=== PATIENT | female | born 1985 | race African-American/Black ===

== ENCOUNTER 2016-12-19 08:35 | Inpatient (IN) | payer BC ==
[2016-12-19] MEDS ORDERED: ELECTROLYTE-148 SOLN 1,000 ML IV SCH (09:30)
[2016-12-19] MEDS ORDERED: DINOPROSTONE 10 MG VAGINAL SUPPOSITORY VG ONE (09:39)
--- NOTE | 2016-12-19 09:48 | HP ---
Past Medical History - Primary Care Physician PCP:: Christian Calvillo - Admission Chief Complaint: 31 yo P0 with at EGA 40w3d admitted for labor induction. 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: No: Alzheimer's, CVA, Dementia, Migraine, Multiple Sclerosis, Peripheral Neuropathy, Parkinson's, Seizure, Syncope, TIA, Vertigo, Other Cardiovascular: No: AFIB, Aneurysm, Aortic Insufficiency, Aortic Stenosis, CAD, CHF, Deep Vein Thrombosis, HTN, Hyperlipdemia, NC, Mitral Insufficiency, Mitral Stenosis, Murmur, Pulmonary Hypertension, Other Pulmonary: No: Asthma, Bronchitis, Cancer, COPD, O2 Dependent, Pneumonia, Previously Intubated, Pulmonary Embolus, Pulmonary Fibrosis, Sleep Apnea, Other Gastrointestinal: No: Ascites, Cancer, Constipation, Crohn's Disease, Diverticulitis, Diverticulosis, Esophageal Varices, Gastritis, GERD, GI Bleed, Hemorrhoids, Hiatal Hernia, Inflamatory Bowel Disease, Irritable Bowel Disease, Pancreatitis, Peptic Ulcer Disease, Ulcerative Colitis, Other Hepatobiliary: No: Cirrhosis, Cholelithiasis, Cholecystitis, Choledocholithiasis , Hepatitis A, Hepatitis B, Hepatitis C, Other Renal/: No: Renal Failure, Renal Inusuff, BPH, Cancer, Hematuria, Hemodialysis , Neurogenic Bladder, Renal Calculi, UTI, Other Reproductive: No: Ectopic , Endometriosis, Fibroids, PID, Polycystic Ovary Syndrome, Postmenopausal, Other ...: 1 ...Para: 0 ... Weeks Gestation by Dates: 40.3 ...EDC by Sono: 12/16/16 Heme/Onc: No: Anemia, B12 Deficiency, Bleeding Disorder, Cancer, Current Chemotherapy, Current Radiation Therapy, Hemochromatosis, Hypercoaguable State, Myeloproliferative Synd, Sickle Cell Disease, Sickle Cell Trait, Thrombocytopenia, Other Infectious Disease: No: AIDS, C-Diff, Herpes Zoster, HIV, MRSA, STD's, Tuberculosis, VREF, Other Psych: No: Addictions, Anxiety, Bipolar, Depression, Panic, Psychosis, Schizophrenia, Other Musculoskeletal: Yes: Chronic low back pain Rheumatology: No: Fibromyalgia, Gout, Lupus, Rheumatoid Arthritis, Sarcoidosis, Vasculitis, Other ENT: No: Allergic Rhinitis, Sinusitis, Other Endocrine: No: Naun's Disease, Alec's Disease, Diabetes Insipidus, Diabetes Mellitus, Hyperparathyroidism, Hyperthyroidism, Hypothyroidism, Osteopenia, SIADH, Other Dermatology: No: Basal Cell, Cellulitis, Eczema, Melanoma, Psoriasis, Squamous Cell, Other - Past Surgical History Past Surgical History: Yes: Bariatric Surgery Hx Myomectomy: No Hx Transabdominal Cerclage: No - Smoking History Smoking history: Never smoked - Alcohol/Substance Use Hx Alcohol Use: No History of Substance Use: reports: None - Social History Usual Living Arrangement: Yes: With Significant Other ADL: Independent 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 History of Recent Travel: No Home Medications - Allergies Allergies/Adverse Reactions: Allergies Allergy/AdvReac Type Severity Reaction Status Date / Time No Known Allergies Allergy Verified 12/19/16 09:49 Review of Systems - Review of Systems Constitutional: reports: No Symptoms Eyes: reports: No Symptoms HENT: reports: No Symptoms Neck: reports: No Symptoms Cardiovascular: reports: No Symptoms Respiratory: reports: No Symptoms Gastrointestinal: reports: No Symptoms Genitourinary: reports: No Symptoms Breasts: reports: No Symptoms Reported Musculoskeletal: reports: No Symptoms Integumentary: reports: No Symptoms Neurological: reports: No Symptoms Endocrine: reports: No Symptoms Hematology/Lymphatic: reports: No Symptoms Psychiatric: reports: No Symptoms Pain Intensity: 0 Physical Exam - Maternity Constitutional: Yes: Well Nourished, No Distress, Calm Eyes: Yes: WNL, Conjunctiva Clear HENT: Yes: WNL, Atraumatic, Normocephalic Neck: Yes: WNL, Supple, Trachea Midline Cardiovascular: Yes: WNL, Regular Rate and Rhythm Lungs: Clear to auscultation, Normal air movement Breast(s): Yes: WNL - Abdominal Exam/OB Fundal Height: 41 Number of Fetuses: Single Presentation: Vertex Contractions: Yes Regularity: Irritability Intensity: Unaware Monitor Mode: External Heart Rate (range): 140 Heart Rate Location: Midline Category: I Accelerations: Non-Uniform Decelerations: None - Vaginal Exam/OB Vaginal Bleediing: No Speculum Exam: No Dilatation (cm): 0 Effacement (%): 0 Amniotic Membrane Status: Intact Presentation: Vertex/Position Station: -3 - Physical Exam Musculoskeletal: Yes: WNL Extremities: Yes: WNL Edema: Yes Edema: LLE: Trace, RLE: Trace Integumentary: Yes: WNL Deep Tendon Reflex Grade: Normal +2 ...Motor Strength: WNL Psychiatric: Yes: WNL, Alert, Oriented Hemorrhage Risk Assessment - Risk Factors Medium Risk Factors: Yes: Obesity (BMI >40) High Risk Factors: Yes: None Risk Score: 1 Risk Level: Medium Risk Imaging - Results Ultrasound: Report Reviewed Assessment/Plan 31 yo P0 with at EGA 40w3d admitted for labor induction. Fetus with Category I tracing and requires no intervention. Adequate pelvimetry with unfavorable cervix. Pt with post term complicated by morbid obesity and gastric bypass. We discussed risks and benefits of labor induction and section. The pt declined the C/S and requested to proceed with labor induction.
[2016-12-19] MEDS ORDERED: AMPICILLIN - 2 GM in SODIUM CHLORIDE 100 ML IVPB ONE (10:00)
[2016-12-19] MEDS: DEXTROSE 5%-LACTATED RINGERS 1,000 ML IV SCH ×2 (10:00→18:05)
[2016-12-19 10:18] LABS: BASOPHIL 0.3 % (0-2.0); EOSINOPHIL 0.3 % (0-4.5); MCH 30.1 pg (25.7-33.7); MCHC 33.5 g/dl (32.0-36.0); MEAN CELL VOLUME 89.9 fl (80-96); MEAN PLT VOLUME 10.7 fl (7.5-11.1); NEUTROPHILS 68.3 % (42.8-82.8); PLATELET COUNT 179 K/MM3 (134-434); RDW 13.8 % (11.6-15.6); WHITE BLOOD COUNT 9.7 K/mm3 (4.0-10.0)
[2016-12-19 10:24] LABS: INR 0.93 (0.82-1.09); PROTHROMBIN TIME (PATIENT) 10.2 SEC (9.98-11.88)
[2016-12-19 10:28] LABS: ACTIVATED PTT 29.5 SECONDS (26.9-34.4)
[2016-12-19 10:34] LABS: ALBUMIN 2.8 g/dl (3.4-5.0); ANION GAP 8 (8-16); CALCIUM 8.8 mg/dL (8.5-10.1); CO2 23 mmol/L (21-32); GLUCOSE,RANDOM 102 mg/dL (74-106)
[2016-12-19 10:37] LABS: ALK PHOS 169 U/L (45-117); BILIRUBIN,TOTAL 0.4 mg/dL (0.2-1.0); COCKROFT - GAULT 0; CREATININE 0.7 mg/dL (0.55-1.02); SGOT/AST 27 U/L (15-37); SGPT/ALT 37 U/L (12-78)
[2016-12-19 10:56] VITALS: BMI 48.2
[2016-12-19] MEDS: AMPICILLIN - 1 GM in SODIUM CHLORIDE 100 ML IVPB SCH ×3 (14:00→22:00)
--- NOTE | 2016-12-19 20:20 | PN ---
Ante-Partal Exam - Subjective Subjective: No complaints. Vital Signs: Vital Signs Temperature 98.2 F 12/19/16 18:00 Pulse Rate 68 12/19/16 18:00 Respiratory Rate 20 12/19/16 18:00 Blood Pressure 123/53 12/19/16 18:00 O2 Sat by Pulse Oximetry (%) Bleeding: No Headache: No Visual changes: No Right upper quadrant pain: No Pain (scale 1-10): 0 - Contractions Contractions: Yes Regularity: Irritability Intensity: Unaware Monitor Mode: External - Exam during Labor Heart Rate: 130 Variability: Moderate Heart Rate Location: Midline Category: I Monitor Accelerations: Present Monitor Decelerations: None Exam: Vaginal Dilatation (cm): 0 Effacement (%): 50 Amniotic Membrane Status: Intact Presentation: Vertex Station: -3 (Adequate pelvimetry) - Intrapartum Hemorrhage Risk Medium Risk Factors: None High Risk Factors: None Risk Score: 0 Risk Level: Low Risk - Assessment/Plan Assessment/Plan: 31yo P0 with at EGA 40w3d admitted for labor induction due to post term and morbid obesity. Fetus with Category I tracing and requires no intervention. Cervidil was removed. Plan to start Pitocin and monitor progress. Plan of care, risks, benefits, alternatives were discussed with the pt. She agreed.
[2016-12-19] MEDS ORDERED: OXYTOCIN 15 UNITS/ LR 250 ML 250 ML IVPB SCH (20:30)
[2016-12-20] MEDS: AMPICILLIN - 1 GM in SODIUM CHLORIDE 100 ML IVPB SCH ×5 (02:00→18:41)
[2016-12-20] MEDS ORDERED: BUTORPHANOL TARTRATE 1 MG/ML VIAL IVPB ONE ×2 (05:00→09:31)
[2016-12-20] MEDS ORDERED: PROMETHAZINE HCL 25 MG/1 ML VIAL IVPB ONE ×2 (05:00→09:31)
--- NOTE | 2016-12-20 07:15 | PN ---
Ante-Partal Exam - Subjective Subjective: No complaints. Pt feels mild cramps. Vital Signs: Vital Signs Temperature 97.7 F 12/20/16 06:00 Pulse Rate 66 12/20/16 06:00 Respiratory Rate 20 12/20/16 06:00 Blood Pressure 148/69 12/20/16 06:00 O2 Sat by Pulse Oximetry (%) Bleeding: No Headache: No Visual changes: No Right upper quadrant pain: No Pain (scale 1-10): 2 - Contractions Contractions: Yes Regularity: Irregular Intensity: Mild Monitor Mode: External - Exam during Labor Heart Rate: 130 Variability: Moderate Heart Rate Location: Midline Category: I Monitor Accelerations: Present Monitor Decelerations: None Exam: Vaginal Dilatation (cm): 1 Effacement (%): 80 Amniotic Membrane Status: Intact Presentation: Vertex Station: -3 (Adequate gynecoid pelvimetry) Remarks: Adequate gynecoid pelvimetry - Intrapartum Hemorrhage Risk Medium Risk Factors: None High Risk Factors: None Risk Score: 0 Risk Level: Low Risk - Assessment/Plan Assessment/Plan: 31 yo P0 undergoing labor induction at EGA 40w4d. Pitocin is at 15mU. Fetus with Category I tracing. Fetus requires no intervention. labor progressed in latent phase. Continue pitocin. Plan to continue indx, monitor progress.
[2016-12-20] MEDS ORDERED: BUTORPHANOL TARTRATE 1 MG/ML VIAL IVPUSH ONE (14:45)
--- NOTE | 2016-12-20 17:08 | PN ---
Ante-Partal Exam - Subjective Subjective: Pt is c/o painful ctx's Vital Signs: Vital Signs Temperature 98.3 F 12/20/16 14:00 Pulse Rate 69 12/20/16 16:00 Respiratory Rate 18 12/20/16 16:00 Blood Pressure 125/78 12/20/16 16:00 O2 Sat by Pulse Oximetry (%) Bleeding: No Headache: No Visual changes: No Right upper quadrant pain: No Pain (scale 1-10): 6 - Contractions Contractions: Yes Regularity: Regular Intensity: Moderate Monitor Mode: External - Exam during Labor Heart Rate: 130 Variability: Moderate Heart Rate Location: Midline Category: I Monitor Accelerations: Present Monitor Decelerations: None Exam: Vaginal Dilatation (cm): 1 Effacement (%): 80 Amniotic Membrane Status: Intact Presentation: Vertex Station: -4 - Intrapartum Hemorrhage Risk Medium Risk Factors: None High Risk Factors: None Risk Score: 0 Risk Level: Low Risk - Assessment/Plan Assessment/Plan: 31 yo P0 with pregancy at EGA 40w4d undergoing labor induction. No cervical change since earlier this AM. pt does not wish to continue labor induction. She is refusing ROM and further labor. The pt requested a section. We had a long discussion re: risks of surgery, including but not limited to infection, bleeding, wound separation, injury to underlying organs. Risks due to morbid obesity explained. The patient wants to proceed with surgery.
[2016-12-20] MEDS ORDERED: METOCLOPRAMIDE HCL INJECTION 10 MG/2 ML VIAL IVPB ONE (17:45)
[2016-12-20] MEDS: DEXTROSE 5%-LACTATED RINGERS 1,000 ML IV SCH (18:13)
[2016-12-20] MEDS ORDERED: morphine SULFATE/Preservative Free 0.5 MG/ML (1cc Syringe) SPIN ONE (19:20)
[2016-12-20] MEDS ORDERED: ACETAMINOPHEN 325 MG TABLET (FP) PO PRN (19:56)
[2016-12-20] MEDS ORDERED: ONDANSETRON 4 MG/2 ML VIAL IVPB PRN (19:56)
[2016-12-20] MEDS ORDERED: IBUPROFEN 600 MG TABLET (FP) PO PRN (20:51)
[2016-12-20] MEDS ORDERED: BENZOCAINE 20% 57 GM BOTTLE TP PRN (20:51)
[2016-12-20] MEDS ORDERED: WITCH HAZEL 50% (TUCKS) 40 PAD/JAR PAD TP PRN (20:51)
[2016-12-20] MEDS ORDERED: BENZOCAINE 28 GM HEMORRHOIDAL OINTMENT TP PRN (20:51)
[2016-12-20] MEDS ORDERED: METHYLERGONOVINE MALEATE 0.2 MG/1 ML AMP IM PRN (20:51)
--- NOTE | 2016-12-20 20:59 | OP ---
Operative Note - Note: Operative Date: 12/20/16 Pre-Operative Diagnosis: Post term at EGA 40w4d. Failed labor induction. Morbid obesity, affecting management. Hx bariatric surgery Operation: Primary LT C/S Findings: Live baby girl in vtx presentation. Light meconium in amniotic fluid. 9/9. Normal uterus, tubes, ovaries. Post-Operative Diagnosis: Same as Pre-op Surgeon: Christian Calvillo Anesthesiologist/LACE ROLLER: Chilango Daniels Anesthesia: Spinal Specimens Removed: Placenta Estimated Blood Loss (mls): 700 Drains & Tubes with Location: Perez Catheter Drains, Volume Out (mls): 300 Blood Volume Replaced (mls): 0 Fluid Volume Replaced (mls): 1,000 Operative Report Dictated: Yes
[2016-12-20] MEDS: IBUPROFEN 800 MG/8 ML IJ IVPB PRN (21:25)
[2016-12-21] MEDS: AMPICILLIN - 1 GM in SODIUM CHLORIDE 100 ML IVPB SCH ×2 (01:12→02:22)
[2016-12-21] MEDS: CEFAZOLIN (PRE-DOCKED) 50 ML IVPB SCH ×3 (03:00→20:44)
[2016-12-21] MEDS: IBUPROFEN 800 MG/8 ML IJ IVPB PRN ×2 (07:58→15:30)
[2016-12-21 08:48] LABS: BASOPHIL 0.1 % (0-2.0); EOSINOPHIL 0.5 % (0-4.5); MCH 30.3 pg (25.7-33.7); MCHC 33.8 g/dl (32.0-36.0); MEAN CELL VOLUME 89.7 fl (80-96); MEAN PLT VOLUME 10.5 fl (7.5-11.1); NEUTROPHILS 70.1 % (42.8-82.8); PLATELET COUNT 147 K/MM3 (134-434); RDW 13.8 % (11.6-15.6); WHITE BLOOD COUNT 8.7 K/mm3 (4.0-10.0)
--- NOTE | 2016-12-21 09:28 | OP ---
DATE OF OPERATION: 12/20/2016 PREOPERATIVE DIAGNOSIS: Post term at estimated gestational age of 40 weeks and 4 days, failed labor induction, morbid obesity affecting management, history of bariatric surgery. SURGERY: Primary low transverse section via Pfannenstiel skin incision. POSTOPERATIVE DIAGNOSIS: Post term at estimated gestational age of 40 weeks and 4 days, failed labor induction, morbid obesity affecting management, history of bariatric surgery. Delivered. IV FLUIDS: 1000 mL. URINE OUTPUT: 300 mL of clear urine at the end of the procedure. ESTIMATED BLOOD LOSS: 700 mL. ANESTHESIOLOGIST: Chilango Daniels MD ANESTHESIA: Spinal. PATHOLOGY: Placenta. SURGEON: Gurjit Calvillo MD FINDINGS: Live baby girl in vertex presentation. Light meconium and amniotic fluid. Apgars 9/9. Normal uterus, fallopian tubes, and ovaries. DESCRIPTION OF PROCEDURE: The patient was met preoperatively. Risks, benefits, and alternatives of surgery were discussed at length in detail. The patient verbalized her understanding and requested to proceed with surgery. The patient was then brought to the OR with the IV running. She was placed on the surgical table in a sitting position. The spinal anesthesia was achieved without difficulty. The patient was then placed in a supine position with a leftward tilt. The patient was prepped and draped in the usual sterile fashion. A Perez catheter was inserted into the bladder and left to drain to gravity. The surgeons then proceeded with the section. The Pfannenstiel skin incision was made with the knife. The incision was carried down to the level of the fascia. Good hemostasis was maintained along the way. The fascia was incised in the midline. The incision was extended bilaterally using Hickman scissors. The fascia was dissected away from the rectus muscles superiorly and inferiorly. The rectus muscles were in the midline. The peritoneum was identified and entered sharply. The peritoneal incision was extended superiorly and inferiorly. The bladder peritoneum was dissected away from the lower uterine segment. The bladder was then reflected downwards using a [place] retractor. The uterus was incised in the lower uterine segment transversely. The uterine incision was extended using bandage scissors. The amniotic bag was ruptured, and light meconium was noted. The baby was delivered from vertex presentation without complications. The nuchal cord was released without difficulty. The patient's shoulders and body were delivered without complications. The baby was crying spontaneously. The umbilical cord blood was clamped and cut. The baby was handed to the awaiting laboratory chemist. The placenta was delivered manually without complications. The uterus was cleared of all clot and debris. The uterus was exteriorized from the abdominal incision. The uterine incision was repaired using a 0 Biosyn suture with a running, locking stitch. Good hemostasis was noted. The uterine incision was then imbricated using a 0 Biosyn suture with good hemostasis and approximation. The uterus was returned into the abdominal cavity. The bladder peritoneum was also reapproximated using a 0 Biosyn suture. The operative site was irrigated using copious amounts of normal saline. Once the saline was aspirated, good hemostasis was confirmed. The peritoneum was then closed using a 2-0 chromic suture. The rectus muscle was approximated using several interrupted 2-0 chromic sutures. The fascia was closed using a 0 Vicryl suture with good hemostasis and approximation. The subcutaneous adipose tissues were closed using several interrupted 2-0 chromic sutures to eliminate space. The skin was closed using a 4-0 Vicryl suture with a subcutaneous stitch. Sponge, lap, and needle counts were correct. The patient was transferred to the recovery room in stable condition and awake. Tano [id number]
[2016-12-21] MEDS: ENOXAPARIN NA (PORCINE) 40 MG/0.4 ML DISP.SYRIN SQ SCH (11:06)
[2016-12-21] MEDS: PRENATAL VITAMINS W/ FOLIC ACID TABLET (FP) PO SCH (11:14)
[2016-12-21] MEDS: SIMETHICONE 80 MG TAB.CHEW (FP) PO PRN ×2 (11:39→20:43)
[2016-12-21] MEDS: ACETAMINOPHEN 325 MG TABLET (FP) PO PRN (12:32)
[2016-12-21] MEDS ORDERED: CARBOPROST TROMETHAMINE 250 MCG/ML AMPUL IM ONE (16:45)
[2016-12-21] MEDS: SENNOSIDES/DOCUSATE COMBO (SENNA PLUS) TABLET (UD) PO PRN (20:42)
[2016-12-21] MEDS: oxyCODONE HCL 5 MG TABLET PO PRN (20:43)
[2016-12-21] MEDS ORDERED: BISACODYL 10 MG SUPP.RECT RC PRN (20:51)
[2016-12-22] MEDS: oxyCODONE HCL 5 MG TABLET PO PRN ×5 (00:53→20:56)
[2016-12-22] MEDS: ACETAMINOPHEN 325 MG TABLET (FP) PO PRN ×4 (00:54→20:55)
[2016-12-22] MEDS: IBUPROFEN 600 MG TABLET (FP) PO PRN ×4 (05:08→20:57)
[2016-12-22] MEDS: SIMETHICONE 80 MG TAB.CHEW (FP) PO PRN ×4 (05:08→20:55)
--- NOTE | 2016-12-22 05:26 | PN ---
Progress Note (short form) - Note Progress Note: s/p c/s had post op vaginal bleeding received methergine and Hemobates no active vaginal bleeding now CBC, BMP 12/21/16 07:05 12/19/16 09:45 Last Vital Signs Temp Pulse Resp BP Pulse Ox 97.6 F 93 H 20 133/82 100 12/21/16 22:00 12/21/16 22:00 12/21/16 22:00 12/21/16 22:00 12/20/16 20:45 abdomen soft, no distension, uterus firm non tender incision dry, clean lochia mild no calf tenderness plan cbc. ambulate pain management
[2016-12-22 06:30] LABS: BASOPHIL 0.3 % (0-2.0); EOSINOPHIL 0.6 % (0-4.5); MCH 29.9 pg (25.7-33.7); MCHC 33.3 g/dl (32.0-36.0); MEAN PLT VOLUME 9.7 fl (7.5-11.1); NEUTROPHILS 72.3 % (42.8-82.8); PLATELET COUNT 150 K/MM3 (134-434); RDW 13.8 % (11.6-15.6); WHITE BLOOD COUNT 9.4 K/mm3 (4.0-10.0)
[2016-12-22] MEDS: PRENATAL VITAMINS W/ FOLIC ACID TABLET (FP) PO SCH (09:48)
[2016-12-22] MEDS ORDERED: DIPHTH,PERTUSS(ACELL),TET 0.5 ML DISP.SYRIN IM ONE (10:00)
--- NOTE | 2016-12-22 10:47 | PN ---
Progress Note (short form) - Note Progress Note: Anesthesia POD#2 S/P under spinal and Duramorph Stable vital,no N/V, pain is under control. Some residual itch subsiding right now. Reassurance given. Vanita Bullock MD.
[2016-12-22] MEDS: ENOXAPARIN NA (PORCINE) 40 MG/0.4 ML DISP.SYRIN SQ SCH (11:41)
[2016-12-22] MEDS: SENNOSIDES/DOCUSATE COMBO (SENNA PLUS) TABLET (UD) PO PRN (20:57)
[2016-12-22] MEDS: FERROUS SO4 325 MG TABLET (FP) PO SCH (21:03)
[2016-12-23] MEDS: SIMETHICONE 80 MG TAB.CHEW (FP) PO PRN ×4 (04:53→21:29)
[2016-12-23] MEDS: oxyCODONE HCL 5 MG TABLET PO PRN ×4 (04:53→21:30)
[2016-12-23] MEDS: IBUPROFEN 600 MG TABLET (FP) PO PRN ×4 (04:54→21:28)
[2016-12-23 07:33] LABS: BASOPHIL 0.1 % (0-2.0); EOSINOPHIL 0.5 % (0-4.5); MCH 30.2 pg (25.7-33.7); MCHC 33.7 g/dl (32.0-36.0); MEAN CELL VOLUME 89.5 fl (80-96); MEAN PLT VOLUME 9.8 fl (7.5-11.1); NEUTROPHILS 66.7 % (42.8-82.8); PLATELET COUNT 152 K/MM3 (134-434); RDW 13.6 % (11.6-15.6); WHITE BLOOD COUNT 6.9 K/mm3 (4.0-10.0)
[2016-12-23] MEDS: ACETAMINOPHEN 325 MG TABLET (FP) PO PRN ×3 (08:29→21:29)
[2016-12-23] MEDS: FERROUS SO4 325 MG TABLET (FP) PO SCH ×2 (09:42→21:28)
[2016-12-23] MEDS: PRENATAL VITAMINS W/ FOLIC ACID TABLET (FP) PO SCH (09:42)
[2016-12-23] MEDS: ENOXAPARIN NA (PORCINE) 40 MG/0.4 ML DISP.SYRIN SQ SCH (09:43)
--- NOTE | 2016-12-23 10:22 | PN ---
Post Progress Note - Subjective Subjective: Patient without acute complaints. Reports overnight passed two clots, no bleeding passing clots this morning. Ambulating without dizziness. Reports tolerating oral intake without nausea or vomiting. Denies fevers or chills. Pain well controlled with oral pain medication. without difficulty. Passing flatus. Type of Delivery: Primary C/S Vital Signs: Vital Signs Temperature 98.3 F 12/22/16 22:00 Pulse Rate 86 12/22/16 22:00 Respiratory Rate 18 12/22/16 22:00 Blood Pressure 121/61 12/22/16 22:00 O2 Sat by Pulse Oximetry (%) 100 12/20/16 20:45 Breast Exam: Yes: Engorged Uterus: Yes: Fundus Firm, Fundus below umbilicus Incision: Yes: Sutures intact. No: Redness, Oozing Abdomen/GI: Yes: Abdomen soft (obese), Tender (incisional), Passing flatus, Tolerating PO Lochia: Yes: Serosa Lochia, amount: Small Extremities: Yes: Calves non-tender, Edema Activity: Ambulating - Labs Labs: CBC WBC 6.9 K/mm3 (4.0-10.0) 12/23/16 06:00 RBC 2.34 M/mm3 (3.60-5.2) L 12/23/16 06:00 Hgb 7.0 GM/dL (10.7-15.3) L 12/23/16 06:00 Hct 20.9 % (32.4-45.2) L 12/23/16 06:00 MCV 89.5 fl (80-96) 12/23/16 06:00 MCHC 33.7 g/dl (32.0-36.0) 12/23/16 06:00 RDW 13.6 % (11.6-15.6) 12/23/16 06:00 Plt Count 152 K/MM3 (134-434) 12/23/16 06:00 MPV 9.8 fl (7.5-11.1) 12/23/16 06:00 Neutrophils % 66.7 % (42.8-82.8) 12/23/16 06:00 Lymphocytes % 24.2 % (8-40) D 12/23/16 06:00 Monocytes % 8.5 % (3.8-10.2) 12/23/16 06:00 Eosinophils % 0.5 % (0-4.5) 12/23/16 06:00 Basophils % 0.1 % (0-2.0) 12/23/16 06:00 Assessment/Plan 31 yo POD #3 s/p primary delivery, failed induction of labor 1. Significant anemia noted, with mild decrease between POD #2 and #3 04 0412/23/16 07:05 05:50 06:00 Hgb 9.2 L D 7.5 L D 7.0 L Hct 27.4 L D 22.7 L D 20.9 L Reviewed risks of anemia with patient including but not limited to dizziness, loss of consciousness, syncope, end-organ damage. Reviewed plan for orthostatic blood pressure, if positive, plan for blood transfusion. Reviewed risks of blood transfusion which include but not limited to transfusion reaction, risk of exposure to infectious disease such as HIV, Hepatitis B and C. She expressed understanding and verbally agrees with plan. Will continue to monitor vaginal bleeding. 2. Encourage ambulation and incentive spirometer use 3. Continue oral pain medication as tolerated 4. Anticipate discharge home postoperative day #4
--- NOTE | 2016-12-23 10:40 | PN ---
Progress Note (short form) - Note Progress Note: Orthostatic VS: Laying BP 114/79 HR 89 Sitting BP 112/77 HR 89 Standing BP 139/84 BP 98 Reviewed positive orthostatic vital signs with patient, reviewed option of blood transfusion. Reviewed risks including transfusion reaction, possible exposure to infectious disease including HIV, Hepatitis B and C. She expressed understanding. All questions from patient and partner answered. 2u PRBC ordered.
[2016-12-23 21:00] VITALS: TEMP 98.4
[2016-12-23] MEDS ORDERED: oxyCODONE HCL 5 MG TABLET ONE (21:25)
[2016-12-23] MEDS: SENNOSIDES/DOCUSATE COMBO (SENNA PLUS) TABLET (UD) PO PRN (21:29)
[2016-12-24] MEDS ORDERED: oxyCODONE HCL 5 MG TABLET PO PRN (06:55)
[2016-12-24] MEDS: SIMETHICONE 80 MG TAB.CHEW (FP) PO PRN (07:02)
[2016-12-24] MEDS: IBUPROFEN 600 MG TABLET (FP) PO PRN (07:03)
[2016-12-24] MEDS: ACETAMINOPHEN 325 MG TABLET (FP) PO PRN (07:04)
[2016-12-24 08:54] LABS: MCH 29.7 pg (25.7-33.7); MEAN CELL VOLUME 87.2 fl (80-96); MEAN PLT VOLUME 9.3 fl (7.5-11.1); PLATELET COUNT 189 K/MM3 (134-434); RDW 14.9 % (11.6-15.6); WHITE BLOOD COUNT 8.3 K/mm3 (4.0-10.0)
--- NOTE | 2016-12-24 09:06 | PN ---
Post Progress Note - Subjective Subjective: Patient without acute complaints. No additional bleeding. Reports feeling "much better" after transfusion. Reports tolerating oral intake without nausea or vomiting. Ambulating without dizziness. Denies fevers or chills. Pain well controlled with oral pain medication. without difficulty. Passing flatus. Post Day: 4 Type of Delivery: Primary C/S Vital Signs: Vital Signs Temperature 98.4 F 12/23/16 20:58 Pulse Rate 86 12/23/16 20:58 Respiratory Rate 20 12/23/16 20:58 Blood Pressure 147/90 12/23/16 20:58 O2 Sat by Pulse Oximetry (%) 100 12/20/16 20:45 Breast Exam: Yes: Engorged Incision: Yes: Sutures intact. No: Redness, Oozing Abdomen/GI: Yes: Abdomen soft, Tender (mild incisinoal), Passing flatus, Tolerating PO Lochia: Yes: Serosa Lochia, amount: Small Extremities: Yes: Calves non-tender, Edema Activity: Ambulating - Labs Labs: CBC WBC 8.3 K/mm3 (4.0-10.0) 12/24/16 07:30 RBC 3.31 M/mm3 (3.60-5.2) L D 12/24/16 07:30 Hgb 9.8 GM/dL (10.7-15.3) L D 12/24/16 07:30 Hct 28.9 % (32.4-45.2) L D 12/24/16 07:30 MCV 87.2 fl (80-96) 12/24/16 07:30 MCHC 34.0 g/dl (32.0-36.0) 12/24/16 07:30 RDW 14.9 % (11.6-15.6) 12/24/16 07:30 Plt Count 189 K/MM3 (134-434) D 12/24/16 07:30 MPV 9.3 fl (7.5-11.1) 12/24/16 07:30 Neutrophils % 66.7 % (42.8-82.8) 12/23/16 06:00 Lymphocytes % 24.2 % (8-40) D 12/23/16 06:00 Monocytes % 8.5 % (3.8-10.2) 12/23/16 06:00 Eosinophils % 0.5 % (0-4.5) 12/23/16 06:00 Basophils % 0.1 % (0-2.0) 12/23/16 06:00 Assessment/Plan 31 yo POD #4 s/p primary delivery, failed induction of labor 1. Significant anemia noted, s/p 2 units pRBCs Appropriate rise of HCT. VSS Patient stable for discharge home today. 2. Patient encouraged to contact MD for: - Severe pain not controlled by oral pain medication - Fevers or chills - Nausea or vomiting, intolerance of oral intake - Incision redness, tenderness or discharge 3. Patient to follow up in office in 1-2 weeks for incision check, 4-6 weeks for visit
[2016-12-24 09:13] VITALS: BP 135/82; PULSE 79
[2016-12-24] MEDS: PRENATAL VITAMINS W/ FOLIC ACID TABLET (FP) PO SCH (09:19)
[2016-12-24] MEDS: FERROUS SO4 325 MG TABLET (FP) PO SCH (09:19)
[2016-12-24] MEDS: ENOXAPARIN NA (PORCINE) 40 MG/0.4 ML DISP.SYRIN SQ SCH (09:19)
--- NOTE | 2016-12-24 09:21 | DS ---
Physical Exam-NUTRIENT MANAGEMENT SPECIALIST Vital Signs: Vital Signs Temperature 98.4 F 12/24/16 09:09 Pulse Rate 79 12/24/16 09:09 Respiratory Rate 20 12/24/16 09:09 Blood Pressure 135/82 12/24/16 09:09 O2 Sat by Pulse Oximetry (%) 100 12/20/16 20:45 Labs: CBC, BMP 12/24/16 07:30 12/19/16 09:45 Delivery - Delivery Type of Anesthesia: Spinal Episiotomy/Laceration: None EBL (cc): 700 Delivery, Single - Stages of Labor Date 1st Stage Initiatied: 12/20/16 Time 1st Stage Initiated: 05:00 Date of Delivery: 12/20/16 Time of Delivery: 19:50 Time Placenta Delivered: 19:51 - Condition of Fire Truck Driver/Mental Health Counselor Present: Yes Name: Iris Guillen Infant Gender: Female Weight: 7 lb 1 oz Position: Left, OT Total Hours ROM (Hrs/Mins): 0hrs/1min - 1 Minute Total Score: 9 5 Minutes Total Score: 9 - Feeding Plan Initial Plan: Elected not to breastfeed exclusively throughout hospitalization Discharge Summary Reason For Visit: CERVICAL INDUCTION Current Active Problems Anemia requiring transfusions (Acute) delivery delivered (Acute) Failed induction of labor (Acute) Procedures: Principal: delivery Other Procedures: induction of labor; blood transfusion Condition: Good - Instructions Diet, Activity, Other Instructions: Physical activity Resume your normal everyday activity as tolerated no heavy lifting or exercise until seen by your surgeon. You may walk unlimited raudel of and climb stairs. You may resume driving the car when you feel safe and comfortable behind the wheel. No sexual activity as instructed. Wound care If you have a bandage, leave it on, and keep dry for 48-72 hours. After that time discard the outer bandage. If they are tapes on the skin under the out of bandage leave them in place. They will peel off in the next 7 to 10 days. Do Not Peel them off. You may shower the day after surgery. If there are tapes present on the skin, you may shower over them. Diet There are no dietary restrictions. Eat healthy, high-fiber foods. Drink 6 to 8 glasses of liquid each day. This will assist in keeping your bowels are regular. Pain management You may take Tylenol or acetaminophen or Ibuprofen (for example, Motrin, Advil etc.) from my pain prescription medication is ordered should be taken as prescribed for moderate to severe pain. Call MD for any of the following: Severe pain not relieved by medication Fever of 101 or higher Excessive bleeding or drainage on dressing Inability to urinate Reference #: [id number] Referrals: Rosemary Hermosillo MD [Staff Physician] - Disposition: HOME - Home Medications Comprehensive Discharge Medication List: Ambulatory Orders Vit/Iron Fumarate/FA [ Tablet] 1 each PO DAILY 12/19/16 Oxycodone HCl/Acetaminophen [Percocet 5-325 mg Tablet -] 1 - 2 tab PO Q6H #30 tab MDD 6 12/24/16
--- NOTE | 2016-12-28 15:24 | PATH ---
Surgical Pathology Report Patient Name: FLORINDA RATLIFF Med. Rec. #: [id number] /Age/Gender: 1985 (Age: 31) / F Account: [id number] Location: [facility] OBS/[employer] Taken: 12/20/2016 Received: 12/21/2016 Reported: 12/28/2016 Physicians: Christian Calvillo M.D. Specimen(s) Received PLACENTA Clinical History , 40.4 weeks, failed induction/failure to dilate; history of gastric bypass 2014 Primary c/section Final Diagnosis PLACENTA, DELIVERY: FOCALLY DISRUPTED THIRD TRIMESTER PLACENTA WITH MODERATE INCREASE IN PRECHORIONIC FIBRIN DEPOSITION, THREE VESSEL UMBILICAL CORD, AND PLACENTAL MEMBRANES WITH MECONIUM HISTIOCYTOSIS AND FOCAL AMNION HYPERPLASIA. Electronically Signed Jimmy Chu M.D. Gross Description The specimen is received fresh, labeled "placenta" and is a 447 gram, 17.0 x 15.0 x 2.6 cm placenta with attached membranes and umbilical cord. The attached membranes are gould with focal opacities and insert marginally. The umbilical cord measures 39 cm in length and averages 1 cm in diameter. The cord inserts eccentrically, 5 cm. to the nearest margin. No true knots or strictures are identified. Cut surface of the umbilical cord reveals 3 vessels. The surface is batista-green, meconium stained with fibrin deposition and appropriate caliber vessels. The maternal surface is red-brown with focal defects. Sectioning reveals red-brown, spongy parenchyma. No focal lesions are identified. Executive Secretary Social Welfare sections are submitted in three cassettes as follows: 1- membrane rolls and umbilical cord; 2-3- full thickness sections of placenta. /12/27/2016 [facility]12/27/2016
== END 2016-12-24 12:00 | disposition home or self-care (01) | DRG 765 ==
LOC: JLDR 08:35 → J3W 12-20 23:06
PROVIDERS: ADMIT Obstetrics & Gynecology; ATTEND Obstetrics & Gynecology
PROC: 10D00Z1 Extraction of Products of Conception, Low, Open Approach (ICD-10-PCS; principal; 2016-12-20)
PROC: 30233N1 Transfusion of Nonautologous Red Blood Cells into Peripheral Vein, Percutaneous Approach (ICD-10-PCS; 2016-12-23)
DX: O48.0 Post-term pregnancy (principal); Z68.42 Body mass index [BMI] 45.0-49.9, adult; Z3A.40 40 weeks gestation of pregnancy; O61.0 Failed medical induction of labor; O99.214 Obesity complicating childbirth; E66.01 Morbid (severe) obesity due to excess calories; O99.013 Anemia complicating pregnancy, third trimester; Z37.0 Single live birth
CPT/HCPCS: 36415; 36430; 80053; 85025; 85027; 85610; 85730; 86593; 86850; 86900; 86901; 86922; 88307-TC; 90715; 94010; P9038; P9058

== ENCOUNTER 2023-04-16 11:09 | Day surgery (SDC) | payer BC ==
[2023-04-12 11:33] VITALS: BMI 50.5
[2023-04-16 13:27] VITALS: TEMP 98.7
[2023-04-16 13:30] VITALS: BP 128/68; PULSE 78; RESP 19
== END 2023-04-16 13:34 | disposition home or self-care (01) ==
LOC: FASU-ENDO 11:09
PROVIDERS: ATTEND Internal Medicine Gastroenterology
PROC: 0DB68ZX Excision of Stomach, Via Natural or Artificial Opening Endoscopic, Diagnostic (ICD-10-PCS; principal; 2023-04-16 12:44)
DX: Z01.818 Encounter for other preprocedural examination (principal); K29.50 Unspecified chronic gastritis without bleeding; Z98.84 Bariatric surgery status
CPT/HCPCS: 81025; 88305-TC; 88342-TC